=== PATIENT | male | born 1990 | race African-American/Black ===

== ENCOUNTER 2018-09-05 13:24 | Emergency (ER) | payer OTHER ==
[~2018-09-05] VITALS: Ht 167.6 cm; Wt 63.6 kg
[~2018-09-05 13:24] MED LIST: ALBUTEROL0.09 MG/A4 IH; AMOXICILLIN 8751 TAB PO; BACTRIM DS 8001 TAB PO; CEPHALEXIN500 M1 PO; FLEXERIL 1010 MG/TAB PO; FLOVENT0.044 MG/A IH; LORTAB 5/500 501 TAB PO; NAPROSYN500 MG PO; NORCO 325 MG-51 TAB PO; PHENERGAN W/CO120 M1 PO
[2018-09-05 13:34] VITALS: BP 145/80; TEMP 99.2
[2018-09-05] MEDS ORDERED: FLEXERIL 1010 MG/TAB PO (15:13)
[2018-09-05 15:20] VITALS: PULSE 95
== END 2018-09-05 15:20 | disposition home or self-care (01) ==
LOC: COL.ER 13:24
DX: S43.401A Unspecified sprain of right shoulder joint, initial encounter (principal); F17.210 Nicotine dependence, cigarettes, uncomplicated; V43.52XA Car driver injured in collision with other type car in traffic accident, initial encounter

== ENCOUNTER 2019-09-12 09:18 | Emergency (ER) | payer SELFPAY ==
[~2019-09-12] VITALS: Ht 167.6 cm; Wt 60.0 kg
[2019-09-12 09:23] VITALS: BP 119/82; TEMP 99.2
[2019-09-12] MEDS ORDERED: NORCO 325 MG-51 TAB PO (10:01)
[2019-09-12 10:49] VITALS: PULSE 84
== END 2019-09-12 10:50 | disposition home or self-care (01) ==
LOC: COL.ER 09:18
DX: S62.306A Unspecified fracture of fifth metacarpal bone, right hand, initial encounter for closed fracture (principal); F17.210 Nicotine dependence, cigarettes, uncomplicated; W23.0XXA Caught, crushed, jammed, or pinched between moving objects, initial encounter; Y92.59 Other trade areas as the place of occurrence of the external cause
CPT/HCPCS: Q4021

== ENCOUNTER 2020-01-31 15:43 | Emergency (ER) | payer SELFPAY ==
[~2020-01-31] VITALS: Ht 167.6 cm; Wt 61.4 kg
[2020-01-31 16:00] VITALS: TEMP 98.9
[2020-01-31] MEDS ORDERED: FLEXERIL 1010 MG/TAB PO (18:41)
[2020-01-31] MEDS ORDERED: NAPROSYN500 MG PO (18:41)
[2020-01-31] MEDS ORDERED: NORCO 325 MG-51 TAB PO (18:41)
[2020-01-31 18:55] VITALS: BP 109/60; PULSE 75
== END 2020-01-31 18:56 | disposition home or self-care (01) ==
LOC: COL.ER 15:43
DX: S16.1XXA Strain of muscle, fascia and tendon at neck level, initial encounter (principal); W22.8XXA Striking against or struck by other objects, initial encounter; Y92.59 Other trade areas as the place of occurrence of the external cause; Y99.0 Civilian activity done for income or pay
CPT/HCPCS: J1885